=== PATIENT | female | born 1965 | race Caucasian/White ===

== ENCOUNTER 2017-05-26 09:37 | Emergency (ER) | payer OTHER, MEDICAID ==
[2017-05-26 11:24] LABS: URINE BLOOD (Dip) POC 2+ (NEGATIVE); URINE GLUCOSE (Dip) POC Negative (NEGATIVE); URINE KETONES (Dip) POC Negative (NEGATIVE); URINE LEUKOCYTE EST (Dip) POC Negative (NEGATIVE); URINE NITRITE (Dip) POC Negative (NEGATIVE); URINE TOTAL PROTEIN POC Negative (NEGATIVE)
[2017-05-26 11:57] LABS: ADD MAN DIFF? NO
[2017-05-26 11:59] LABS: WHITE BLOOD COUNT 6.1 10^3/ul (4.8-10.8)
[2017-05-26 11:59] LABS: BASOPHILS % 0.5 % (0.0-2.0); EOSINOPHILS % 0.5 % (0.0-7.0); HEMATOCRIT 27.5 % (37.0-47.0); LYMPHOCYTES % 33.5 % (15.0-51.0); MEAN CORPUSCULAR HEMOGLOBIN 22.8 pg (29.0-33.0); MEAN CORPUSCULAR HGB CONC 32.7 g/dl (32.0-37.0); MEAN CORPUSCULAR VOLUME 69.6 fl (82.0-101.0); MEAN PLATELET VOLUME 9.6 fl (7.4-10.4); MONOCYTE # 0.6 10^3/ul (0.3-0.9); MONOCYTES % 9.7 % (0.0-11.0); NEUTROPHIL # 3.4 10^3/ul (1.6-7.5); NEUTROPHILS % 55.5 % (39.0-77.0); PLATELET COUNT 285 10^3/UL (140-415); RED BLOOD COUNT 3.95 10^6/ul (4.20-5.40); RED CELL DISTRIBUTION WIDTH 17.7 % (11.5-14.5)
[2017-05-26 12:17] LABS: ANION GAP 19 (8-16); BLOOD UREA NITROGEN 9 mg/dl (7-20); CALCIUM 9.3 mg/dl (8.4-10.2); CARBON DIOXIDE 23 mmol/L (21-31); CHLORIDE 105 mmol/L (97-110); CREATININE 0.42 mg/dl (0.44-1.00); GLUCOSE 93 mg/dl (70-220); POTASSIUM 3.9 mmol/L (3.5-5.1); SODIUM 143 mmol/L (135-144)
[2017-05-26 13:58] LABS: INR 0.93; PROTIME 12.5 Sec (11.9-14.9)
[2017-05-26 13:59] LABS: PARTIAL THROMBOPLASTIN TIME 31.3 Sec (25.0-35.0)
== END 2017-05-26 16:05 | disposition home or self-care (01) ==
LOC: FTE 09:37
DX: O01.9 Hydatidiform mole, unspecified (principal); R10.2 Pelvic and perineal pain; Z3A.00 Weeks of gestation of pregnancy not specified
CPT/HCPCS: 36415; 71046; 76801; 76817; 80048; 81003; 81025; 84443; 84702; 85025; 85610; 85730; 86900; 86901; 99285-25

== ENCOUNTER 2017-05-29 18:18 | Emergency (ER) | payer OTHER | END 2017-05-29 22:13 | disposition home or self-care (01) | LOC: FTE 18:18 | DX: O02.0 Blighted ovum and nonhydatidiform mole (principal) | CPT/HCPCS: 99283; Z7502 ==